=== PATIENT | female | born 1950 | race Caucasian/White ===

== ENCOUNTER → 2023-05-23 | Outpatient (CLI) | payer BC ==
[~2023-05-23] MED LIST: ATEN25 PO; ATOR10 PO; FURO20 PO; LORA10 PO; POTA8 PO; VERA80 PO
== END | disposition home or self-care (01) ==
LOC: LAB SHORT 11:12 → LAB 11:12
DX: R30.0 Dysuria (principal); R31.9 Hematuria, unspecified
CPT/HCPCS: 87077; 87086; 87186

== ENCOUNTER 2023-08-06 00:38 | Emergency (ER) | payer MEDICARE, OTHER ==
[~2023-08-06] VITALS: Ht 172.7 cm; Wt 69.0 kg
[2023-08-06 01:19] LABS: BASOPHILS ABSOLUTE AUTO 0.07 K/mm3 (0.00-0.23); BASOPHILS PERCENT AUTO 1 % (0-2); EOSINOPHILS ABSOLUTE AUTO 0.19 K/mm3 (0.00-0.68); EOSINOPHILS PERCENT AUTO 2 % (0-6); Hematocrit 41.5 % (33.0-51.0); Hemoglobin 13.8 g/dL (11.5-16.0); IMMATURE GRAN ABSOLUTE AUTO 0.03 K/mm3 (0.00-0.10); IMMATURE GRAN PERCENT AUTO 0 % (0-1); LYMPHOCYTES ABSOLUTE AUTO 1.27 K/mm3 (0.84-5.20); LYMPHOCYTES PERCENT AUTO 14 % (21-46); MONOCYTES ABSOLUTE AUTO 0.53 K/mm3 (0.16-1.47); MONOCYTES PERCENT AUTO 6 % (4-13); Mean Corpuscular HGB 27.1 pg (26.0-34.0); Mean Corpuscular HGB Conc 33.3 g/dL (31.5-36.5); Mean Corpuscular Volume 81 fL (80-100); Mean Platelet Volume 9.4 fL (9.1-12.4); NEUTROPHILS ABSOLUTE AUTO 7.31 K/mm3 (1.96-9.15); NEUTROPHILS PERCENT AUTO 78 % (41-73); Platelet Count 232 K/mm3 (150-400); RDW Coefficient Variation 13.5 % (11.7-14.2); RDW Standard Deviation 39.8 fL (35.1-46.3)
[2023-08-06 01:35] LABS: Bun/Creatinine Ratio 22.8 (12.0-20.0); Calcium, Blood 9.3 mg/dL (8.5-10.1); Creatinine, Blood 0.96 mg/dL (0.40-1.00); Potassium, Blood 3.2 mmol/L (3.5-5.5)
[2023-08-06] MEDS ORDERED: CEPH250A PO (02:24)
[2023-08-06] MEDS ORDERED: JANUMET 50-5001 EACH PO (02:24)
[2023-08-06] MEDS ORDERED: DOC250 PO (02:25)
[2023-08-06] MEDS ORDERED: Cranberry400 MG PO (02:26)
[2023-08-06] MEDS ORDERED: ZYRTEC10 M2 PO (02:27)
[2023-08-06] MEDS ORDERED: URITRAX47 GM PO (02:27)
[2023-08-06] MEDS ORDERED: METF500 PO (02:30)
[2023-08-06] MEDS ORDERED: TRIA50 PO (02:30)
[2023-08-06] MEDS ORDERED: ALMACONE SUSPE355 ML PO (04:51)
[2023-08-06 05:00] VITALS: BP 103/63
== END 2023-08-06 05:00 | disposition home or self-care (01) ==
LOC: ER 00:38
PROVIDERS: Emergency Medicine
DX: R07.9 Chest pain, unspecified (principal); R10.13 Epigastric pain; R11.2 Nausea with vomiting, unspecified; I10 Essential (primary) hypertension; E78.00 Pure hypercholesterolemia, unspecified; Z79.899 Other long term (current) drug therapy; Z88.5 Allergy status to narcotic agent; Z88.6 Allergy status to analgesic agent
CPT/HCPCS: 71046; 80048; 83690; 84484; 85025; 93005; 93010; 96374; 99285-25; A9270